=== PATIENT | male | born 2000 | race Hispanic/Latino ===

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

== ENCOUNTER 2018-01-23 10:30 | Outpatient (CLI) | payer SELFPAY ==
[2018-01-23 11:25] LABS: #Basophils 0.1 thou/uL (0.0-0.2); #Eosinphils 0.2 thou/uL (0.0-0.7); #Lymphocytes 1.3 thou/uL (1.20-3.40); #Monocytes 0.5 thou/uL (0.11-0.59); %Basophils 1.2 % (0.0-1.0); %Eosinophils 4.3 % (0.0-10.0); %Lymphocytes 26.4 % (28.0-48.0); %Monocytes 9.6 % (0.0-4.0); %Neutrophils 58.5 % (31.0-61.0); Hemoglobin 16.2 g/dL (14.0-18.0); Mean Corpuscular HGB CONC 34.4 g/dL (32.0-36.0); Mean Corpuscular Hemoglobin 29.2 pg (25.0-35.0); Mean Corpuscular Volume 85.1 fL (78.0-98.0); Mean Platelet Volume 6.5 fL (7.4-10.4); Platelet Count 229 thou/uL (130-400); RBC Distribution Width 12.7 % (11.5-14.5); Red Blood Cell (RBC) Count 5.53 mill/uL (4.00-5.20); White Blood Cell (WBC) Count 5.1 thou/uL (4.8-10.8)
== END 2018-01-23 10:31 | disposition home or self-care (01) ==
LOC: LABBT 10:30
PROVIDERS: ATTEND Surgery
DX: Z01.812 Encounter for preprocedural laboratory examination (principal); K36 Other appendicitis
CPT/HCPCS: 85025

== ENCOUNTER 2018-03-06 07:49 | Outpatient (CLI) | payer OTHER ==
--- NOTE | 2018-03-06 10:18 | CT ---
CT OF THE ABDOMEN AND PELVIS WITH IV CONTRAST: INDICATION: History of chronic appendicitis with right lower quadrant pain for a few days. COMPARISON: Prior exam dated 12/27/17 and 12/24/17. FINDINGS: The extent of the inflammatory infiltration involving the surrounding soft tissues near the cecum and appendix has decreased. There is prominence of the mid to distal aspect of the appendix measuring 1 8.81 mm with some mild stranding in the region. The findings are consistent with the patient's known diagnosis of chronic appendicitis. No pathologically enlarged lymph nodes are evident. No drainable fluid collection is noted. There i s a moderate amount of retained stool within the colon. Lung bases are clear. Liver, spleen, pancreas, and adrenal glands appear within normal limits. Kidneys appear within brodie l limits. There is a retroaortic left renal vein. No definite acute osseous abnormality is evident. IMPRESSION: Findings of chronic appendicitis. There is improvement in the extent of the fluid and inflammatory s tranding seen surrounding the appendix and cecum as seen on the comparison examination in December. There is prominent thickening surrounding the mid to distal aspect of the appendix, some of which may be related to scar or chronic inflammation. There is some mild stranding within the region whic h also may be related to some retroperitoneal scarring and/or inflammatory stranding. No drainable f luid collection is grossly evident. POS: [facility]
[2018-03-06] MEDS ORDERED: Iopamidol 370 76% 100 ML VIAL ONE (12:20)
== END 2018-03-06 07:50 | disposition home or self-care (01) ==
LOC: CT 07:49
PROVIDERS: ATTEND Surgery
DX: K36 Other appendicitis (principal); K38.8 Other specified diseases of appendix
CPT/HCPCS: 74177

== ENCOUNTER 2018-03-08 09:44 | Outpatient (CLI) | payer OTHER ==
[2018-03-08 10:00] LABS: #Basophils 0.1 thou/uL (0.0-0.2); #Eosinphils 0.1 thou/uL (0.0-0.7); #Lymphocytes 1.6 thou/uL (1.20-3.40); #Monocytes 0.4 thou/uL (0.11-0.59); #Neutrophils 3.1 thou/uL (1.40-6.50); %Eosinophils 2.6 % (0.0-10.0); %Lymphocytes 30.2 % (28.0-48.0); %Monocytes 7.6 % (0.0-4.0); %Neutrophils 58.7 % (31.0-61.0); Hemoglobin 16.1 g/dL (14.0-18.0); Mean Corpuscular HGB CONC 32.6 g/dL (32.0-36.0); Mean Corpuscular Hemoglobin 27.8 pg (25.0-35.0); Mean Corpuscular Volume 85.2 fL (78.0-98.0); Mean Platelet Volume 6.8 fL (7.4-10.4); Platelet Count 299 thou/uL (130-400); RBC Distribution Width 12.3 % (11.5-14.5); White Blood Cell (WBC) Count 5.3 thou/uL (4.8-10.8)
== END 2018-03-08 09:45 | disposition home or self-care (01) ==
LOC: LABBT 09:44
PROVIDERS: ATTEND Surgery
DX: Z01.812 Encounter for preprocedural laboratory examination (principal); K36 Other appendicitis
CPT/HCPCS: 85025

== ENCOUNTER 2018-03-10 08:55 | Day surgery (SDC) | payer OTHER ==
[2018-03-08 10:03] VITALS: BMI 27.1
[2018-03-10] MEDS ORDERED: Sodium Chloride 0.9% 100 ML ONE (09:40)
[2018-03-10] MEDS ORDERED: cefOXitin 2 GM VIAL ONE (09:40)
[2018-03-10] MEDS ORDERED: Bupivacaine/Epinephrine 0.25% 30 ML VIAL ONE (10:28)
[2018-03-10] MEDS ORDERED: Fentanyl 100 MCG/2 ML VIAL ONE ×2 (10:39→12:52)
[2018-03-10] MEDS ORDERED: Midazolam HCl 2 mg/2 ml Vial ONE (10:39)
[2018-03-10] MEDS ORDERED: Promethazine HCl 25 MG/ML VIAL ONE ×2 (10:39→12:46)
--- NOTE | 2018-03-10 13:00 | OP ---
PREOPERATIVE DIAGNOSIS: Chronic appendicitis. SURGEON: Bryan Pittman M.D. PROCEDURE PERFORMED: Laparoscopic appendectomy. INDICATIONS: A 17-year-old male over 2 months ago began having right lower quadrant pain; about a mo nth ago, he came in and had a very large phlegmon in the right lower quadrant. No drainable purulent fluid. He was treated with antibiotics, start to get better and is here for interval appendectomy. FINDINGS: He had a phlegmon of the appendix. There was no purulent fluid seen, a lot of inflammatio n and was able to get it out. PROCEDURE IN DETAIL: After informed consent was obtained, the patient was taken to the operating larissa m and given general endotracheal anesthesia, placed in the supine position. The abdomen was prepped and draped in usual fashion. Local anesthesia infiltrated subcutaneously and deep. A subumbilical i ncision was performed. The subcu divided sharply. The fascia grasped and two stay sutures of 0 Vicr yl placed to either side of midline. Midline incised. Digital palpation revealed no local adhesions . A blunt 10-12 mm trocar inserted. Pneumoperitoneum was created to a pressure of 15 mmHg. A 0-deg ree laparoscope inserted under direct vision, two 5 mm ports placed, one suprapubic and one right lat eral abdomen. There was some omentum that was stuck to the appendix. This was able to be reflected, then the cecum and base of the appendix were found. dissecting out the appendiceal artery and dividing it with a LigaSure, tedious process of trying to dissect out the rest of the appendix . Finally got it dissected out and then went across the base of the appendix with the linear 45 mm s tapler. The appendix was placed in an Endosac and removed from the abdomen in an Endosac. The area was thoroughly irrigated. Hemostasis assured. Irrigation fluid removed. Trocars and retractors rem yesy. The fascia closed with interrupted 0 Vicryl suture. The skin closed with interrupted 4-0 Rapi de. Dermabond applied. The patient tolerated the procedure well and was transferred to recovery in good condition. Sponge and needle count verified correct x2.
[2018-03-10] MEDS ORDERED: HYDROcodone/Acetaminophen 10/325 mg Tablet PO PRN ×2 (14:28)
[2018-03-10] MEDS ORDERED: hydrALAZINE 20 MG/ML VIAL SLOW IVP PRN (14:28)
[2018-03-10] MEDS ORDERED: Promethazine HCl 25 MG/ML VIAL IM PRN (14:28)
[2018-03-10] MEDS ORDERED: Dextrose 5% in Water 1,000 ML IV PRN (14:28)
[2018-03-10] MEDS ORDERED: Ondansetron HCl/PF 4 MG/2 ML Vial IVP PRN (14:28)
[2018-03-10] MEDS ORDERED: Morphine 4 MG/ML Carpuject SLOW IVP PRN (14:28)
[2018-03-10] MEDS ORDERED: Dextrose 50% Abboject 50 ML SYRINGE SLOW IVP PRN (14:28)
[2018-03-10] MEDS ORDERED: Sodium Chloride 0.9% 1,000 ML IV SCH (14:30)
--- NOTE | 2018-03-10 14:31 | RAD ---
CHEST 1 VIEW: Date: 03/10/18 HISTORY: Pulmonary edema. FINDINGS: No comparison. Cardiac silhouette is magnified by projection. Pulmonary vasculature upper limits of normal. Mediasti num is midline. No lobar consolidation, pneumothorax, or pleural fluid. IMPRESSION: No active cardiopulmonary abnormalities are demonstrated. POS: [facility]
[2018-03-10] MEDS ORDERED: Ondansetron HCl/PF 4 MG/2 ML Vial ONE (15:32)
[2018-03-10] MEDS ORDERED: Ketorolac Tromethamine 30 MG/ML VIAL ONE (15:32)
[2018-03-10] MEDS ORDERED: Dexamethasone 20 MG/5 ML VIAL ONE (15:32)
[2018-03-10] MEDS ORDERED: Glycopyrrolate 0.2 MG/ML 5 ML SYRINGE ONE (15:32)
[2018-03-10] MEDS ORDERED: Labetalol HCl 100 MG/20 ML VIAL ONE (15:32)
[2018-03-10] MEDS ORDERED: Lidocaine 1% PF 5 ML VIAL ONE (15:32)
[2018-03-10] MEDS ORDERED: PROPOFOL 200 MG/20 ML VIAL ONE (15:32)
[2018-03-10] MEDS ORDERED: PHENYLEPHRINE-NS 100 MCG/ML 10 ML SYRINGE ONE (15:32)
[2018-03-10] MEDS ORDERED: HYDROcodone/Acetaminophen 5/325 mg Tablet ONE (17:08)
[2018-03-10] MEDS ORDERED: Ketorolac Tromethamine 30 MG/ML VIAL IVP SCH (18:00)
[2018-03-10] MEDS ORDERED: cefOXitin 2 GM in Sodium Chloride 0.9% 100 ML IVPB SCH (19:00)
[2018-03-10] MEDS ORDERED: Famotidine/PF 20 mg/2ml Vial SLOW IVP SCH (21:00)
[2018-03-10] MEDS ORDERED: Famotidine 20 MG TAB PO SCH (21:00)
--- NOTE | 2018-03-10 22:16 | CON ---
DATE OF CONSULTATION: 03/10/2018 HISTORY OF PRESENT ILLNESS: Mr. Edgardo Lakhani is a gentleman, is 17, who admitted for an appende ctomy. He underwent this successfully but had apparently some postop respiratory distress, hypoxemia may be some trace hemoptysis. Chest radiograph was unremarkable. It is felt he might have negative pressure pulmonary edema. PHYSICAL EXAMINATION: GENERAL: When I evaluated him, he was in no distress. VITAL SIGNS: His heart rate was in the 80s. His blood pressure was normal. His respiratory rate wa s in the teens and oximetry is in the high 90s. NECK: Unremarkable. LUNGS: Clear. HEART: Regular rhythm. ABDOMEN: Slightly distended as expected after surgery. LABORATORY DATA: There is no lab today. On 03/08, he had a white count 5.3, hemoglobin 16.1, and pl atelet count of 299. His renal function was normal. His creatinine was 0.7, bilirubin was 1.7. IMPRESSION: 1. Status post appendectomy. 2. ? transient respiratory distress. When I evaluated him, he is in no distress. I recommended rem oval of BiPAP and weaning off O2. He is extremely unlikely that he had a thromboembolic event in OR in the perioperative period. He does have mild hyperbilirubinemia, which would make me wonder about Gilbert's disease. In any event, we can wean off oxygen, he could be safely discharged home in my opinion. At this poin t, he does not have any respiratory complaints.
[2018-03-11] MEDS ORDERED: Enoxaparin Sodium 40 MG/0.4 ML SYRINGE SC SCH (09:00)
== END 2018-03-10 17:25 | disposition home or self-care (01) ==
LOC: SDC 08:55
PROVIDERS: ATTEND Surgery
PROC: 0DTJ4ZZ Resection of Appendix, Percutaneous Endoscopic Approach (ICD-10-PCS; principal; 2018-03-10)
DX: K36 Other appendicitis (principal)
CPT/HCPCS: 71045; 88304; 94660; 96374; 96375; 96376; J0694; J1100; J1885; J2001; J2250; J2405; J2550; J2704; J3010; J7050